=== PATIENT | male | born 1955 | race Hispanic/Latino ===

== ENCOUNTER → 2020-04-27 | Outpatient (CLI) | payer OTHER | END | disposition home or self-care (01) | LOC: RAH 11:14 | PROVIDERS: ATTEND Internal Medicine | DX: I10 Essential (primary) hypertension (principal); M47.814 Spondylosis without myelopathy or radiculopathy, thoracic region | CPT/HCPCS: 71046 ==

== ENCOUNTER → 2021-03-18 | Outpatient (CLI) | payer OTHER ==
[~2021-03-18] MED LIST: CEPH500B PO; DICY20TA2 PO; PHEN-847 PO
== END | disposition home or self-care (01) ==
LOC: RAH 11:03
PROVIDERS: ATTEND Internal Medicine
DX: N20.0 Calculus of kidney (principal); N40.1 Benign prostatic hyperplasia with lower urinary tract symptoms; R30.0 Dysuria; R91.1 Solitary pulmonary nodule; K57.90 Diverticulosis of intestine, part unspecified, without perforation or abscess without bleeding
CPT/HCPCS: 74176

== ENCOUNTER 2021-03-20 21:06 | Emergency (ER) | payer OTHER ==
[~2021-03-20] VITALS: Ht 165.1 cm; Wt 80.7 kg
[2021-03-20 21:45] VITALS: BP 188/91
[2021-03-20 23:14] LABS: BASOPHILS % (AUTO) 0.7 % (0.0-5.0); EOSINOPHILS % (AUTO) 4.4 % (0.0-8.0); HEMATOCRIT 44.6 % (42-54); MEAN CORPUSCULAR HEMOGLOBIN 28.9 pg (27.0-33.0); MEAN CORPUSCULAR HGB CONC 32.5 g/dL (32.0-36.0); MONOCYTES % (AUTO) 9.6 % (3.0-13.0); NEUTROPHILS % (AUTO) 52.1 % (40.0-77.0); PLATELET COUNT (AUTO) 215 K/uL (130-400); RED BLOOD CELL COUNT(AUTO) 5.01 MIL/uL (4.50-6.20); RED CELL DISTRIBUTION WIDTH 12.5 % (11.0-15.5); WHITE BLOOD COUNT (AUTO) 8.8 K/uL (4.8-10.8)
[2021-03-20 23:27] LABS: CREATININE 1.3 mg/dL (0.5-1.5); POTASSIUM 4.6 mmol/L (3.5-5.1)
[2021-03-20 23:32] LABS: ALBUMIN 4.1 g/dL (3.5-5.0); BILIRUBIN,TOTAL 0.4 mg/dL (0.2-1.0); TOTAL PROTEIN, SERUM 7.5 g/dL (6.0-8.3)
[2021-03-21] MEDS ORDERED: CEFTRIAXONE SODIUM 1 GM IM SCH (00:30)
[2021-03-21] MEDS ORDERED: DICYCLOMINE HCL 20 MG TAB PO SCH (00:30)
[2021-03-21] MEDS ORDERED: PHENAZOPYRIDINE HCL 200 MG TABLET PO SCH (00:30)
[2021-03-21] MEDS ORDERED: TAMSULOSIN HCL 0.4 MG CAP.ER.24H PO SCH (00:30)
[2021-03-21 00:32] LABS: APPEARANCE,URINE Clear (CLEAR); BILIRUBIN,URINE Negative (NEGATIVE); COLOR,URINE Yellow (YELLOW); GLUCOSE, URINE (UA) Negative (NEGATIVE); KETONES,URINE Negative (NEGATIVE); LEUKOCYTE ESTERASE ,URINE Small (NEGATIVE); NITRATE,URINE Negative (NEGATIVE); OCCULT BLOOD,URINE Large (NEGATIVE); PROTEIN,URINE Trace mg/dL (NEGATIVE); UROBILINOGEN,URINE 0.2 mg/dL (0.2-1.0)
[2021-03-21 00:43] LABS: BACTERIA,URINE Few /HPF (None Seen); YEAST,URINE BUDDING Rare /HPF (None Seen)
[2021-03-21] MEDS ORDERED: DICY20TA2 PO (00:45)
[2021-03-21] MEDS ORDERED: PHEN-847 PO (00:45)
[2021-03-21] MEDS ORDERED: CEPH500B PO (00:45)
[2021-03-21] MEDS ORDERED: LIDOCAINE HCL-MPF 1% 2ML VIAL ONE (01:00)
[2021-03-21 01:25] VITALS: BP 163/88
== END 2021-03-21 01:31 | disposition home or self-care (01) ==
LOC: EDH 21:06
DX: N21.0 Calculus in bladder (principal); N39.0 Urinary tract infection, site not specified; E11.9 Type 2 diabetes mellitus without complications; Z79.899 Other long term (current) drug therapy
CPT/HCPCS: 36415; 80053; 81001; 85025; 87088; 96372; 99284; J0696; J3490

== ENCOUNTER 2021-04-22 08:33 | Day surgery (SDC) | payer OTHER ==
[2021-04-16 14:46] LABS: BASOPHILS % (AUTO) 0.9 % (0.0-5.0); EOSINOPHILS % (AUTO) 3.8 % (0.0-8.0); HEMATOCRIT 45.6 % (42-54); LYMPHOCYTES % (AUTO) 27.3 % (21.0-51.0); MEAN CORPUSCULAR HGB CONC 32.7 g/dL (32.0-36.0); MEAN CORPUSCULAR VOLUME 88.7 fL (79-99); MONOCYTES % (AUTO) 8.9 % (3.0-13.0); NEUTROPHILS % (AUTO) 58.7 % (40.0-77.0); PLATELET COUNT (AUTO) 218 K/uL (130-400); RED BLOOD CELL COUNT(AUTO) 5.14 MIL/uL (4.50-6.20); RED CELL DISTRIBUTION WIDTH 12.6 % (11.0-15.5); WHITE BLOOD COUNT (AUTO) 7.4 K/uL (4.8-10.8)
[2021-04-16 14:48] LABS: APPEARANCE,URINE Clear (CLEAR); BILIRUBIN,URINE Negative (NEGATIVE); COLOR,URINE Yellow (YELLOW); GLUCOSE, URINE (UA) Negative (NEGATIVE); KETONES,URINE Negative (NEGATIVE); LEUKOCYTE ESTERASE ,URINE Negative (NEGATIVE); NITRATE,URINE Negative (NEGATIVE); OCCULT BLOOD,URINE Negative (NEGATIVE); PROTEIN,URINE Negative (NEGATIVE); UROBILINOGEN,URINE 0.2 mg/dL (0.2-1.0)
[2021-04-16 14:59] LABS: INR 0.96 (0.85-1.15); PROTHROMBIN TIME 10.5 SEC (9.6-11.6)
[2021-04-16 15:00] LABS: PARTIAL THROMBOPLASTIN TIME 26.6 SEC (26.3-35.5)
[2021-04-16 15:03] LABS: CREATININE 1.1 mg/dL (0.5-1.5); POTASSIUM 4.4 mmol/L (3.5-5.1)
[~2021-04-22] VITALS: Ht 165.1 cm; Wt 80.1 kg
[2021-04-22] VITALS (12 sets, daily range): BP systolic 140–211; BP diastolic 62–111
[~2021-04-22 08:33] MED LIST changes: -CEPH500B PO; -DICY20TA2 PO; +GENTAMICIN 80 MG/NS 100 ML PB 100 ML IV SCH; +LEVO500T89 PO; +METF-444 PO; -PHEN-847 PO
[2021-04-22] MEDS ORDERED: LEVOFLOXACIN 500 MG TABLET PO SCH (09:00)
[2021-04-22] MEDS ORDERED: 0.9%NACL 1000ML 1,000 ML IV ONE (09:16)
[2021-04-22] MEDS: CEFTRIAXONE 1G VIAL IVP SCH ×2 (09:45→10:40)
[2021-04-22] MEDS ORDERED: DEXAMETHASONE SOD PHOSPHATE 10MG/ML 1ML VIAL ONE ×2 (10:18→11:05)
[2021-04-22] MEDS ORDERED: FENTANYL CITRATE PF 50 MCG/1 ML 2ML VIAL ONE ×2 (10:18→12:41)
[2021-04-22] MEDS ORDERED: NEOSTIGMINE 5MG/5ML SYR IV ONE ×2 (10:18→12:56)
[2021-04-22] MEDS ORDERED: LIDOCAINE PF 100MG/5ML (2%) SYRINGE 5ML ONE (10:18)
[2021-04-22] MEDS ORDERED: PROPOFOL 10 MG/ML 20ML VIAL IV ONE (10:18)
[2021-04-22] MEDS ORDERED: GLYCOPYRROLATE 1 MG/5 ML SYRINGE ONE ×2 (10:18→12:56)
[2021-04-22] MEDS ORDERED: MIDAZOLAM HCL 1 MG/ML 2ML VIAL ONE (10:18)
[2021-04-22] MEDS ORDERED: SUCCINYLCHOLINE 200MG/10ML SYR ONE (10:18)
[2021-04-22] MEDS ORDERED: MEPERIDINE-PF 25 MG/ML SYG ONE (10:22)
[2021-04-22] MEDS ORDERED: MINERAL OIL 30 ML UDCUP ONE (11:03)
[2021-04-22] MEDS ORDERED: HYDRALAZINE 20MG/ML VIAL ONE (13:51)
[2021-04-22] MEDS: MEPERIDINE-PF 25 MG/ML SYG ONE ×2 (13:55→14:17)
== END 2021-04-22 15:20 | disposition home or self-care (01) ==
LOC: DAH 08:33
PROVIDERS: ATTEND Urology
DX: D29.1 Benign neoplasm of prostate (principal); Z20.822 Contact with and (suspected) exposure to COVID-19; N21.0 Calculus in bladder; E11.9 Type 2 diabetes mellitus without complications; M19.90 Unspecified osteoarthritis, unspecified site; K21.9 Gastro-esophageal reflux disease without esophagitis; Z79.01 Long term (current) use of anticoagulants; Z79.899 Other long term (current) drug therapy
CPT/HCPCS: 36415 ×2; 52317; 52648; 71045; 80048; 81003; 82360; 82948 ×2; 84153; 85025; 85610; 85730; 87088; 87635; 93005; A4215; A4221; A4222; A4223; A4354; A4358 ×2; A4600; A4663; A4930; A6260; C1758; C9803; J0330; J0360; J0696; J1100 ×2; J2001; J2175 ×2; J2250; J2704; J2710 ×2; J3010 ×2; J3490 ×2; J7030 ×2; J1580

== ENCOUNTER 2021-04-24 03:50 | Emergency (ER) | payer OTHER ==
[~2021-04-24] VITALS: Ht 165.1 cm; Wt 78.0 kg
[~2021-04-24 03:50] MED LIST changes: -GENTAMICIN 80 MG/NS 100 ML PB 100 ML IV SCH
[2021-04-24 03:55] VITALS: BP 166/80
[2021-04-24 04:20] VITALS: BP 142/78
[2021-04-24 04:21] LABS: APPEARANCE,URINE Cloudy (CLEAR); BILIRUBIN,URINE Negative (NEGATIVE); GLUCOSE, URINE (UA) Negative (NEGATIVE); KETONES,URINE Negative (NEGATIVE); LEUKOCYTE ESTERASE ,URINE Small (NEGATIVE); NITRATE,URINE Negative (NEGATIVE); OCCULT BLOOD,URINE Large (NEGATIVE); PROTEIN,URINE POS 2+ mg/dL (NEGATIVE); UROBILINOGEN,URINE 0.2 mg/dL (0.2-1.0)
[2021-04-24 04:22] LABS: COLOR,URINE DARK YELLOW (YELLOW)
[2021-04-24 04:31] LABS: RBC,URINE 26-50 /HPF (0-1)
[2021-04-24 04:32] LABS: SQUAMOUS EPITHELIAL CELL,UR Few /HPF (0-2)
[2021-04-24 04:33] LABS: AMORPHOUS SEDIMENT,UR Few /LPF (None Seen); BACTERIA,URINE Few /HPF (None Seen)
[2021-04-24] MEDS ORDERED: CEPH500B PO (15:15)
== END 2021-04-24 05:26 | disposition home or self-care (01) ==
LOC: EDH 04:03
DX: T83.098A Other mechanical complication of other urinary catheter, initial encounter (principal); T83.038A Leakage of other urinary catheter, initial encounter; R33.9 Retention of urine, unspecified; E11.9 Type 2 diabetes mellitus without complications; Z79.84 Long term (current) use of oral hypoglycemic drugs; Z87.442 Personal history of urinary calculi; Z98.890 Other specified postprocedural states
CPT/HCPCS: 81001; 87088

== ENCOUNTER 2021-04-24 11:57 | Emergency (ER) | payer OTHER ==
[~2021-04-24] VITALS: Ht 165.1 cm; Wt 78.0 kg
[2021-04-24 14:40] LABS: APPEARANCE,URINE SL CLOUDY (CLEAR); BILIRUBIN,URINE NEGATIVE (NEGATIVE); GLUCOSE, URINE (UA) NEGATIVE (NEGATIVE); KETONES,URINE NEGATIVE (NEGATIVE); LEUKOCYTE ESTERASE ,URINE SMALL (NEGATIVE); NITRATE,URINE NEGATIVE (NEGATIVE); OCCULT BLOOD,URINE LARGE (NEGATIVE); PH,URINE 6.5 (5.0-8.0); PROTEIN,URINE 30 mg/dL (NEGATIVE); UROBILINOGEN,URINE 0.2 mg/dL (0.2-1.0)
[2021-04-24 14:49] LABS: BACTERIA,URINE Rare /HPF (None Seen); COLOR,URINE PINK (YELLOW)
[2021-04-24 14:50] LABS: SQUAMOUS EPITHELIAL CELL,UR Rare /HPF (0-2)
[2021-04-24 14:52] LABS: RBC,URINE 51-100 /HPF (0-1)
[2021-04-24] MEDS ORDERED: CEPH500B PO (15:15)
[2021-04-24] MEDS ORDERED: LIDOCAINE HCL-MPF 1% 2ML VIAL ONE (15:23)
[2021-04-24] MEDS ORDERED: CEFTRIAXONE 1G VIAL IM ONE (15:30)
[2021-04-24 15:51] VITALS: BP 124/74
== END 2021-04-24 15:57 | disposition home or self-care (01) ==
LOC: EDH 11:57
DX: T83.098A Other mechanical complication of other urinary catheter, initial encounter (principal); N30.90 Cystitis, unspecified without hematuria; E11.9 Type 2 diabetes mellitus without complications; Z87.442 Personal history of urinary calculi
CPT/HCPCS: 81001; 87088; 96372; 99283 ×2; J0696; J3490